=== PATIENT | female | born 1960 | race Caucasian/White ===

== ENCOUNTER → 2017-07-25 | Outpatient (CLI) | payer BC ==
[2017-07-25 12:19] LABS: Basophils # (A) 0.1 k/uL (0-0.2); Basophils % (A) 1 %; Eosinophils # (A) 0.2 k/uL (0-0.7); Eosinophils % (A) 3 %; HGB 14.4 gm/dL (11.4-16.0); Lymphocytes # (A) 3.3 k/uL (1.0-4.8); Lymphocytes % (A) 48 %; MCH 28.7 pg (25.0-35.0); MCHC 34.3 g/dL (31.0-37.0); MCV 83.6 fL (80.0-100.0); Mean Platelet Volume 7.4; Monocytes # (A) 0.3 k/uL (0-1.0); Monocytes % (A) 5 %; Neutrophils # (A) 2.8 k/uL (1.3-7.7); Neutrophils % (A) 41 %; Platelet Count 254 k/uL (150-450); RBC 5.03 m/uL (3.80-5.40); RDW 12.5 % (11.5-15.5); WBC 6.9 k/uL (3.8-10.6)
== END | disposition home or self-care (01) ==
LOC: LABPAT 11:37
PROVIDERS: ATTEND Obstetrics & Gynecology
DX: Z01.818 Encounter for other preprocedural examination (principal); Z01.812 Encounter for preprocedural laboratory examination
CPT/HCPCS: 36415; 85025; 93005

== ENCOUNTER 2017-07-29 05:42 | Day surgery (SDC) | payer BC ==
[2017-07-27 17:08] VITALS: BMI 29.4
--- NOTE | 2017-07-28 07:14 | P.HPOB ---
History of Present Illness H&P Date: 07/28/17 Chief Complaint: Post menopausal bleeding. This patient is a pleasant 57-year-old 2 para 2 female who presented to me for evaluation of postmenopausal bleeding. Patient's history is such that she says she stopped her menstrual cycle at age 51. In May of this year she had 4 days of what she thought was menstrual type bleeding. Patient up in our office for many years. I did do a transvaginal ultrasound which showed some small fibroids and the endometrium was only 4 mm. Patient's cervix is stenotic, and due to this bleeding I did recommend that she proceed with endometrial sampling by hysteroscopy D&C. 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 History of Any Multi-Drug Resistant Organisms: None Reported Past Surgical History: Section Additional Past Surgical History / Comment(s): C/S x2 Past Anesthesia/Blood Transfusion Reactions: No Reported Reaction Past Psychological History: No Psychological Hx Reported Smoking Status: Never smoker Past Alcohol Use History: None Reported Past Drug Use History: None Reported - Past Family History Mother Family Medical History: Cancer Medications and Allergies Home Medications Medication Instructions Recorded Confirmed Type No Known Home Medications [No 07/27/17 07/27/17 History Known Home Medications] Allergies Allergy/AdvReac Type Severity Reaction Status Date / Time No Known Allergies Allergy Verified 07/27/17 16:57 Exam - Vital Signs Vital signs: Intake and Output 07/27/17 07/28/17 07/28/17 22:59 06:59 14:59 Other: Weight 75.296 kg - OBG Physical Exam Abdomen: bowel sounds normal Vulva: both: normal Vagina: atrophic mucosa Cervix: no lesion (Cervix is stenotic), no discharge Uterus: normal size Results Transvaginal ultrasound in my office shows small uterine fibroids that are calcified, endometrium is only 4 mm. Assessment and Plan (1) Postmenopausal bleeding Narrative/Plan: This is a pleasant 57-year-old female who had a four-day episode of postmenopausal bleeding. Evaluation thus far has only showed small uterine fibroids. Plan is hysteroscopy D&C for further evaluation and treatment. This patient does understand that this surgery has risks including risks of infection , bleeding, possible uterine perforation. All the patient's questions have been answered and a written consent is obtained. Status: Acute Code(s): N95.0 - POSTMENOPAUSAL BLEEDING SNOMED Code(s): 78212015
[~2017-07-29 05:42] MED LIST: Pre Op ABX Message 1 EACH MISC MISCELLANE ONE
[2017-07-29] MEDS ORDERED: ONDANSETRON 4 MG/2 ML VIAL IVP ONE (05:44)
[2017-07-29] MEDS ORDERED: MIDAZOLAM 2 MG/2 ML VIAL IV PRN (05:44)
[2017-07-29] MEDS ORDERED: fentaNYL (PF) 50 MCG/ML 2 ML AMP IV PRN (05:44)
[2017-07-29] MEDS ORDERED: DEXAMETHASONE SOD PHOSPHATE 10 MG/ML 1 ML VIAL IV ONE (05:44)
[2017-07-29] MEDS ORDERED: SCOPOLAMINE 1.5MG/72HR PATCH TRANSDERM ONE (05:44)
[2017-07-29] MEDS ORDERED: LACTATED RINGERS 1,000 ML IV SCH (05:44)
[2017-07-29] MEDS ORDERED: LIDOCAINE 1% 20 ML VIAL (10MG/ML) FOR IV START INTRADERMA ONE (06:12)
[2017-07-29] MEDS ORDERED: MIDAZOLAM 2 MG/2 ML VIAL ONE (06:53)
[2017-07-29] MEDS ORDERED: LIDOCAINE 1% INJ 10MG/ML (20 ML MDV) ONE (06:53)
[2017-07-29] MEDS ORDERED: PROPOFOL 10 MG/ML 20 ML VIAL IV ONE (06:53)
[2017-07-29] MEDS ORDERED: fentaNYL (PF) 50 MCG/ML 2 ML AMP ONE (06:53)
[2017-07-29] MEDS ORDERED: KETOROLAC 30 MG/ML 1 ML VIAL ONE (06:53)
--- NOTE | 2017-07-29 07:28 | P.OP ---
Date of Procedure: 07/29/17 Preoperative Diagnosis: Post menopausal bleeding Postoperative Diagnosis: Same Procedure(s) Performed: #1: Hysteroscopy. 2: Dilation and curettage Anesthesia: MAC Surgeon: Alexander Rubin Estimated Blood Loss (ml): 5 Urine output (ml): 100 Pathology: other (Uterine curettings) Condition: stable Disposition: PACU Indications for Procedure: Please see dictated H&P for intimate details of this patient's admission. Brief summary this pleasant 57-year-old patient who presented to me with 4 days of postmenopausal bleeding. Transvaginal ultrasound showed normal looking endometrium however she did have cervical stenosis and therefore presents now for hysteroscopy D&C for further endometrial sampling, evaluation, and treatment. Patient understands this procedure and risks including risks of infection, bleeding, possible uterine perforation. All the patient's questions are answered written consent is obtained. Operative Findings: This patient had an atrophic-appearing endometrium. Cervix is completely stenotic. Description of Procedure: This patient is taken to the operating room where she is laid in the supine position. She subsequently goes general mask anesthesia without incident. With an adequate level of anesthesia she's placed in dorsal lithotomy position. She did have venous diet placed due to her left lower leg venous abnormality. Examination under anesthesia shows a small uterus mid position. She has a vaginal perineal prep and drape. Weighted speculum was placed in the posterior vagina. Bladder is drained this time for 100 mL of clear urine. I then grabbed the cervix with an Allis clamp. Cervix is malformed and completely stenotic. I can see where the cervical os is however it is completely sealed over. I try to open up with a hemostat without success. I then take a 15 blade scalpel make a X type incision on the cervix and it opens up. At this time she is gently sounded to 7 cm. I dilate the cervix gently to allow a hysteroscope into the uterine cavity. Using saline solution hysteroscopy is performed. The endometrial cavity appears completely atrophic without growths. This done the hysteroscope was removed. Dilate the cervix more to allow a small curette easily and the uterine cavity. A gentle but vigorous 4 moderate curettage is done. This tissue is sent off to pathology. This completed the Allis clamp was then removed the weighted speculum was removed. All counts are correct 3. There are no complications. Patient is awoken from anesthesia and taken recovery room in satisfactory condition.
[2017-07-29 07:33] VITALS: TEMP 97.5
[2017-07-29] MEDS ORDERED: LACTATED RINGERS 1,000 ML IV ONE (08:02)
[2017-07-29 08:19] VITALS: RESP 16
[2017-07-29 08:55] VITALS: BP 154/85; PULSE 79
== END 2017-07-29 09:30 | disposition home or self-care (01) ==
LOC: OR 05:42
PROVIDERS: ATTEND Obstetrics & Gynecology
DX: N84.0 Polyp of corpus uteri (principal); N88.2 Stricture and stenosis of cervix uteri; D25.9 Leiomyoma of uterus, unspecified; Z86.73 Personal history of transient ischemic attack (TIA), and cerebral infarction without residual deficits
CPT/HCPCS: 88305; 58558; J2250; J1100; J2001; J3010; J1885; J2704

== ENCOUNTER → 2017-08-23 | Outpatient (CLI) | payer BC ==
--- NOTE | 2017-08-24 13:21 | MM ---
Reason for exam: screening (asymptomatic). History: Patient is postmenopausal. Physical Findings: A clinical breast exam by your physician is recommended on an annual basis and results should be correlated with mammographic findings. MG Screening Mammo w CAD Bilateral CC and MLO view(s) were taken. No prior studies available for comparison. There are scattered fibroglandular densities. There is no discrete abnormality. ASSESSMENT: Negative, BI-RAD 1 RECOMMENDATION: Routine screening mammogram of both breasts in 1 year.
== END | disposition home or self-care (01) ==
LOC: RADMAMWWP 16:36
PROVIDERS: ATTEND Obstetrics & Gynecology
DX: Z12.31 Encounter for screening mammogram for malignant neoplasm of breast (principal)
CPT/HCPCS: 77067

== ENCOUNTER → 2019-12-13 | Day surgery (SDC) | payer BC ==
[2019-12-12 10:38] VITALS: BMI 27.4
[~2019-12-13] MED LIST changes: +LACTATED RINGERS 1,000 ML IV SCH; +LIDOCAINE 1% (10MG/ML) FOR IV START INTRADERMA ONE; +LIDOCAINE 1% INJ 10MG/ML (20 ML MDV) ONE; +PROPOFOL 10 MG/ML 20 ML VIAL IV ONE; -Pre Op ABX Message 1 EACH MISC MISCELLANE ONE
--- NOTE | 2019-12-13 08:08 | P.GSHP ---
History of Present Illness H&P Date: 12/13/19 CHIEF COMPLAINT: Colon screen HISTORY OF PRESENT ILLNESS: The patient is a 59-year-old female who presents for colon screen. Lower endoscopy was offered for further evaluation and management. PAST MEDICAL HISTORY: Please see list. PAST SURGICAL HISTORY: Please see list. MEDICATIONS: Please see list. ALLERGIES: Please see list. SOCIAL HISTORY: No illicit drug use FAMILY HISTORY: No reports of Crohn disease or ulcerative colitis. REVIEW OF ORGAN SYSTEMS: CONSTITUTIONAL: No reports of fevers or chills. PHYSICAL EXAM: VITAL SIGNS: Stable GENERAL: Well-developed pleasant in no acute distress. HEENT: No scleral icterus. Extraocular movements grossly intact. Moist buccal mucosa. NECK: Supple without lymphadenopathy. CHEST: Unlabored respirations. Equal bilateral excursions. CARDIOVASCULAR: Regular rate and rhythm. Distal 2+ pulses. ABDOMEN: Soft, nontender, nondistended. MUSCULOSKELETAL: No clubbing, cyanosis, or edema. ASSESSMENT: 1. Colon screen. PLAN: 1. 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 History of Any Multi-Drug Resistant Organisms: None Reported Past Surgical History: Section Additional Past Surgical History / Comment(s): C/S x2 Past Anesthesia/Blood Transfusion Reactions: No Reported Reaction Smoking Status: Never smoker - Past Family History Mother Family Medical History: Cancer Medications and Allergies Home Medications Medication Instructions Recorded Confirmed Type No Known Home Medications 12/12/19 12/12/19 History Allergies Allergy/AdvReac Type Severity Reaction Status Date / Time No Known Allergies Allergy Verified 12/12/19 10:32
[2019-12-13 09:37] VITALS: TEMP 97.3
[2019-12-13 10:28] VITALS: RESP 17
--- NOTE | 2019-12-13 10:28 | P.PCN ---
Date of Procedure: 12/13/19 Description of Procedure: PREOPERATIVE DIAGNOSIS: Colonoscopy screening. POSTOPERATIVE DIAGNOSIS: Colonoscopy screening, first Colon polyp, hepatic flexure OPERATION: Colonoscopy to the cecum, ileocecal valve and appendiceal orifice. SURGEON: Cely Mcguire MD. ANESTHESIA: MAC. INDICATIONS: The patient is a 59-year-old female who presents for her first colonoscopy screening. Benefits and risks were described and informed consent was obtained. DESCRIPTION OF PROCEDURE: The patient had undergone Suprep. She had been brought into the operating room and laid in the left lateral decubitus position. After adequate intravenous sedation, the rectum was examined with 2% lidocaine jelly. No external hemorrhoids were encountered. The rectal tone was within normal limits. No lesions were palpated in the rectal vault. An Olympus colonoscope was advanced until the cecum, ileocecal valve and appendiceal orifice were clearly viewed. The prep was excellent. No scattered diverticulosis was encountered. A villous type adenoma, 3 mm with cold forceps biopsy along the hepatic flexure. No evidence of focal colitis was found. Retroflexion of the scope demonstrated grade 1 internal hemorrhoids without active bleeding or inflammation. The colon was desufflated. The patient had tolerated the procedure well. Withdrawal time was over 6 minutes. FINDINGS: Aronchick preparation quality scale 1 (1-5) Internal hemorrhoids, grade 1 No external prolapsed hemorrhoids. No arteriovenous malformations. Removal of 1 colon polyp: -A villous type adenoma, 3 mm removed using cold forceps biopsy along the hepatic flexure. No focal colitis. No diverticulosis RECOMMENDATIONS: Lower endoscopy in 5 years2024 Plan - Discharge Summary Discharge Rx Participant: No New Discharge Prescriptions: Continue No Known Home Medications Discharge Medication List No Known Home Medications 12/12/19 [History] Follow up Appointment(s)/Referral(s): Cely Mcguire MD [STAFF PHYSICIAN] - 01/01/20 Patient Instructions/Handouts: *Surgery [facility] - (Anesthesia) Endoscopy Discharge Instructions, Colonoscopy (DC) Activity/Diet/Wound Care/Special Instructions: Repeat colonoscopy 10 years, 2029 Discharge Disposition: HOME SELF-CARE
[2019-12-13 10:38] VITALS: BP 153/79; PULSE 79
== END | disposition home or self-care (01) ==
LOC: ORWHC2ENDO 09:15
PROVIDERS: ATTEND Surgery Plastic and Reconstructive Surgery
DX: Z12.11 Encounter for screening for malignant neoplasm of colon (principal); D12.3 Benign neoplasm of transverse colon; K64.0 First degree hemorrhoids; Z86.73 Personal history of transient ischemic attack (TIA), and cerebral infarction without residual deficits; I77.9 Disorder of arteries and arterioles, unspecified; Z98.890 Other specified postprocedural states
CPT/HCPCS: 88305; 45380; J2001; J2704

== ENCOUNTER → 2022-02-22 | Outpatient (CLI) | payer OTHER ==
--- NOTE | 2022-02-23 08:55 | MM ---
Reason for Exam: Screening (asymptomatic). Last mammogram was performed 4 year(s) and 6 month(s) ago. Patient History: Menarche at age 12. Postmenopausal. Mother had ovarian cancer, age 75. Risk Values: Sarai 5 year model risk: 1.1%. NCI Lifetime model risk: 5.2%. Prior Study Comparison: 08/23/2017 Bilateral Screening Mammogram, [facility]. Tissue Density: The breast tissue is almost entirely fat. Findings: Analyzed By CAD. There is no suspicious group of microcalcifications or new suspicious mass in either breast. Overall Assessment: Negative, BI-RAD 1 Management: Screening Mammogram of both breasts in 1 year. A clinical breast exam by your physician is recommended on an annual basis and results should be correlated with mammographic findings. [facility] will attempt to contact patient to return for supplemental views and ultrasound if indicated. Electronically signed and approved by: Neeraj Hwang DO
== END | disposition home or self-care (01) ==
LOC: RADMAMWWP 14:55
PROVIDERS: ATTEND Family Medicine
DX: Z12.31 Encounter for screening mammogram for malignant neoplasm of breast (principal); Z78.0 Asymptomatic menopausal state; Z80.41 Family history of malignant neoplasm of ovary
CPT/HCPCS: 77067